=== PATIENT | male | born 1950 | race Asian ===

== ENCOUNTER 2019-03-05 05:15 | Inpatient (IN) | payer OTHER ==
[~2019-03-05] VITALS: Ht 162.6 cm; Wt 76.3 kg
[2019-03-05 05:21] VITALS: Ht 162.6 cm; Wt 76.3 kg
[2019-03-05 06:13] LABS: BASOPHIL % 0.1 % (0-2); PLATELET COUNT 150 x10^3mcL (130-400); RED CELL DISTRIBUTION WIDTH 14.1 % (11.5-14.5)
[2019-03-05 06:32] LABS: CALCIUM 7.9 mg/dL (8.5-10.1); CARBON DIOXIDE 25.7 mmol/L (21-32); CHLORIDE SERUM 105 mmol/L (98-107); CREATININE SERUM 1.3 mg/dL (0.7-1.3); GFR1 58 mL/min; GLUCOSE SERUM 226 mg/dL (74-106); POTASSIUM SERUM 4.1 mmol/L (3.5-5.1); SODIUM SERUM 139 mmol/L (136-145)
[2019-03-05 06:37] LABS: ALBUMIN 3.7 g/dL (3.4-5.0); ALKALINE PHOSPHATASE 100 U/L (46-116); ALT/SGPT 35 U/L (16-63); AST/SGOT 31 U/L (15-37); BILIRUBIN TOTAL 0.5 mg/dL (0.20-1.00); CHOLESTEROL 118 mg/dL (<200); TOTAL PROTEIN, SERUM 7.9 g/dL (6.4-8.2)
[2019-03-05] MEDS ORDERED: ASPIR 8181 MG PO (07:35)
[2019-03-05] MEDS ORDERED: LIPITOR80 MG PO (07:37)
[2019-03-05] MEDS ORDERED: LANTUS SOLOS100 U/M1 SQ (07:38)
[2019-03-05] MEDS ORDERED: COMINH IH (07:39)
[2019-03-05] MEDS ORDERED: LEVALBUTER0.31 MG/3 IH (07:40)
[2019-03-05] MEDS ORDERED: LOSARTAN POTASS25 M1 PO (07:41)
[2019-03-05] MEDS ORDERED: TOPROL XL25 MG PO (07:41)
[2019-03-05] MEDS ORDERED: DULERA1 AR2 IH (07:42)
[2019-03-05 09:31] VITALS: BP 163/92
[2019-03-05 10:08] VITALS: BP 163/92
[2019-03-05 10:14] LABS: CHOLESTEROL/HDL RATIO 4.9
[2019-03-05 17:24] LABS: UA SPECIFIC GRAVITY 1.015 (1.005-1.035); microscopic required? YES; urine erythrocyte NEGATIVE (NEGATIVE)
[2019-03-05 17:29] VITALS: BP 146/61
[2019-03-05 17:29] LABS: AMPHETAMINE QUAL UR NONE DETECTED (See below)
[2019-03-05 20:30] VITALS: BP 170/78
[2019-03-05 20:50] VITALS: BP 143/81
[2019-03-06 05:38] VITALS: BP 166/85
[2019-03-06 05:48] VITALS: BP 141/72
[2019-03-06 06:49] LABS: BASOPHIL % 0.3 % (0-2); PLATELET COUNT 204 x10^3mcL (130-400); RED CELL DISTRIBUTION WIDTH 13.9 % (11.5-14.5)
[2019-03-06 06:52] LABS: CALCIUM 8.2 mg/dL (8.5-10.1); CARBON DIOXIDE 25.7 mmol/L (21-32); CHLORIDE SERUM 104 mmol/L (98-107); CREATININE SERUM 1.2 mg/dL (0.7-1.3); GFR1 > 60 mL/min; GLUCOSE SERUM 145 mg/dL (74-106); POTASSIUM SERUM 4.1 mmol/L (3.5-5.1); SODIUM SERUM 138 mmol/L (136-145)
[2019-03-06 09:11] VITALS: BP 150/77
[2019-03-06 14:26] VITALS: BP 161/87
[2019-03-06 17:00] VITALS: BP 133/83
[2019-03-06 21:39] VITALS: BP 142/72
[2019-03-07 06:23] VITALS: BP 126/71
[2019-03-07 09:14] VITALS: BP 133/78
[2019-03-07 12:15] VITALS: BP 145/72
[2019-03-07 15:42] VITALS: BP 116/69
[2019-03-07 17:09] VITALS: BP 128/80
== END 2019-03-07 18:25 | disposition other institution (70) | DRG 637 ==
LOC: ED 05:15 → DU 07:13
PROVIDERS: Emergency Medicine; ADMIT Internal Medicine
DX: E11.649 Type 2 diabetes mellitus with hypoglycemia without coma (principal); G93.41 Metabolic encephalopathy; J44.1 Chronic obstructive pulmonary disease with (acute) exacerbation; I11.9 Hypertensive heart disease without heart failure; I25.10 Atherosclerotic heart disease of native coronary artery without angina pectoris; E78.5 Hyperlipidemia, unspecified; E11.22 Type 2 diabetes mellitus with diabetic chronic kidney disease; H40.9 Unspecified glaucoma; R94.31 Abnormal electrocardiogram [ECG] [EKG]; E66.01 Morbid (severe) obesity due to excess calories; E66.9 Obesity, unspecified; Z79.82 Long term (current) use of aspirin; Z79.4 Long term (current) use of insulin; Z68.29 Body mass index [BMI] 29.0-29.9, adult; Z87.891 Personal history of nicotine dependence; Z79.899 Other long term (current) drug therapy
CPT/HCPCS: 36600; 82962; 94150; A9500; G0378; G0480; J1650; J2785; J3490; J7626; J7644; Q0092

== ENCOUNTER 2019-10-22 17:19 | Inpatient (IN) | payer OTHER, SELFPAY ==
[~2019-10-22] VITALS: Ht 162.6 cm; Wt 75.2 kg
[~2019-10-22 17:19] MED LIST: ASPIR 8181 MG PO; COMINH IH; DULERA1 AR2 IH; LANTUS SOLOS100 U/M1 SQ; LEVALBUTER0.31 MG/3 IH; LIPITOR80 MG PO; LOSARTAN POTASS25 M1 PO; TOPROL XL25 MG PO
[2019-10-22 17:29] VITALS: Ht 162.6 cm; Wt 75.2 kg
[2019-10-22 18:18] LABS: BASOPHIL % 0.1 % (0-2); RED CELL DISTRIBUTION WIDTH 13.6 % (11.5-14.5)
[2019-10-22 18:20] LABS: PLATELET COUNT 125 x10^3mcL (130-400)
[2019-10-22 18:46] LABS: ALBUMIN 3.6 g/dL (3.4-5.0); BILIRUBIN TOTAL 0.6 mg/dL (0.20-1.00); CARBON DIOXIDE 21.6 mmol/L (21-32); CREATININE SERUM 3.6 mg/dL (0.7-1.3); POTASSIUM SERUM 4.2 mmol/L (3.5-5.1); T4(THYROXINE) 7.1 ug/dL (4.7-13.3); TOTAL PROTEIN, SERUM 8.1 g/dL (6.4-8.2)
[2019-10-22 19:06] LABS: CALCIUM 8.2 mg/dL (8.5-10.1)
[2019-10-22 19:30] LABS: C REACTIVE PROTEIN 18.1 mg/dL (<=0.9)
[2019-10-22 21:25] LABS: UA SPECIFIC GRAVITY 1.025 (1.005-1.035); microscopic required? YES; urine erythrocyte 3+ (NEGATIVE)
[2019-10-22 21:27] LABS: CHOLESTEROL/HDL RATIO 5.4
[2019-10-22 21:35] LABS: AMPHETAMINE QUAL UR NONE DETECTED (See below)
[2019-10-23 01:22] VITALS: BP 100/69; BP 109/82
[2019-10-23 03:02] VITALS: BP 98/50
[2019-10-23 06:35] LABS: BASOPHIL % 0.2 % (0-2); PLATELET COUNT 135 x10^3mcL (130-400); RED CELL DISTRIBUTION WIDTH 13.6 % (11.5-14.5)
[2019-10-23 08:00] VITALS: BP 104/48
[2019-10-23 08:06] LABS: CALCIUM 8.2 mg/dL (8.5-10.1); CARBON DIOXIDE 22.7 mmol/L (21-32); POTASSIUM SERUM 4.8 mmol/L (3.5-5.1)
[2019-10-23 08:10] LABS: CREATININE SERUM 5.1 mg/dL (0.7-1.3)
[2019-10-23 09:40] LABS: C REACTIVE PROTEIN 20.6 mg/dL (<=0.9)
[2019-10-23 11:21] VITALS: BP 91/58
[2019-10-23 16:00] VITALS: BP 96/47
[2019-10-23 16:41] LABS: CALCIUM 7.6 mg/dL (8.5-10.1); CARBON DIOXIDE 21.5 mmol/L (21-32); POTASSIUM SERUM 4.8 mmol/L (3.5-5.1)
[2019-10-23 16:47] LABS: CREATININE SERUM 5.7 mg/dL (0.7-1.3)
[2019-10-23 17:12] LABS: CREATININE UR 230.4 mg/dL (0.95-2.49)
[2019-10-23 20:00] VITALS: BP 140/87
[2019-10-24] VITALS (7 sets, daily range): BP systolic 82–116; BP diastolic 50–79
[2019-10-24 04:56] LABS: BASOPHIL % 0.1 % (0-2); RED CELL DISTRIBUTION WIDTH 13.9 % (11.5-14.5)
[2019-10-24 05:04] LABS: PLATELET COUNT 101 x10^3mcL (130-400)
[2019-10-24 05:17] LABS: BILIRUBIN TOTAL 0.48 mg/dL (0.20-1.00); CALCIUM 7.4 mg/dL (8.5-10.1); CARBON DIOXIDE 19.9 mmol/L (21-32); PHOSPHOROUS 7.1 mg/dL (2.5-4.9); POTASSIUM SERUM 5.1 mmol/L (3.5-5.1); TOTAL PROTEIN, SERUM 7.2 g/dL (6.4-8.2)
[2019-10-24 05:23] LABS: ALBUMIN 3.2 g/dL (3.4-5.0)
[2019-10-24 05:27] LABS: CREATININE SERUM 6.6 mg/dL (0.7-1.3)
[2019-10-25 03:13] VITALS: BP 105/47
[2019-10-25 06:50] LABS: RED CELL DISTRIBUTION WIDTH 13.8 % (11.5-14.5)
[2019-10-25 07:33] LABS: BILIRUBIN TOTAL 0.52 mg/dL (0.20-1.00); CALCIUM 7.9 mg/dL (8.5-10.1); CARBON DIOXIDE 23.5 mmol/L (21-32); PHOSPHOROUS 6.7 mg/dL (2.5-4.9); POTASSIUM SERUM 4.5 mmol/L (3.5-5.1)
[2019-10-25 07:40] LABS: ALBUMIN 3.3 g/dL (3.4-5.0)
[2019-10-25 07:41] LABS: CREATININE SERUM 6.3 mg/dL (0.7-1.3)
[2019-10-25 07:46] LABS: BASOPHIL % 0 % (0-2); PLATELET COUNT 118 x10^3mcL (130-400)
[2019-10-25 08:00] VITALS: BP 82/57
[2019-10-25 11:45] VITALS: BP 120/88
[2019-10-25 16:20] VITALS: BP 99/67
[2019-10-25 19:33] VITALS: BP 114/67
[2019-10-25 23:15] VITALS: BP 92/62
[2019-10-26 03:02] VITALS: BP 108/84
== END 2019-10-26 07:44 | disposition expired | DRG 871 ==
LOC: ED 17:19 → IC 20:30
PROVIDERS: Emergency Medicine; Internal Medicine; ADMIT Internal Medicine; ATTEND Internal Medicine
PROC: 02H633Z Insertion of Infusion Device into Right Atrium, Percutaneous Approach (ICD-10-PCS; principal; 2019-10-24)
PROC: B548ZZA Ultrasonography of Superior Vena Cava, Guidance (ICD-10-PCS; 2019-10-24)
PROC: 5A1D70Z Performance of Urinary Filtration, Intermittent, Less than 6 Hours Per Day (ICD-10-PCS; 2019-10-24)
PROC: 5A12012 Performance of Cardiac Output, Single, Manual (ICD-10-PCS; 2019-10-26)
DX: A41.9 Sepsis, unspecified organism (principal); U07.1 COVID-19; J96.01 Acute respiratory failure with hypoxia; I21.4 Non-ST elevation (NSTEMI) myocardial infarction; J12.89 Other viral pneumonia; N17.0 Acute kidney failure with tubular necrosis; J44.1 Chronic obstructive pulmonary disease with (acute) exacerbation; J44.0 Chronic obstructive pulmonary disease with (acute) lower respiratory infection; M62.82 Rhabdomyolysis; N18.4 Chronic kidney disease, stage 4 (severe); I47.1 Supraventricular tachycardia; E87.2 Acidosis; R00.1 Bradycardia, unspecified; I46.9 Cardiac arrest, cause unspecified; I25.10 Atherosclerotic heart disease of native coronary artery without angina pectoris; I48.0 Paroxysmal atrial fibrillation; I12.9 Hypertensive chronic kidney disease with stage 1 through stage 4 chronic kidney disease, or unspecified chronic kidney disease; E11.22 Type 2 diabetes mellitus with diabetic chronic kidney disease; E78.5 Hyperlipidemia, unspecified; E78.00 Pure hypercholesterolemia, unspecified; Z79.4 Long term (current) use of insulin; Z79.899 Other long term (current) drug therapy
CPT/HCPCS: 36556; 36600; 82962; 83880; 85378; 87804; A4628; G0378; J0456; J0696; J1644; J1650; J1815; J2250; J2920; J3490; J3535; J7030; J7040; J7050; P9047; Q0092; U0003-CS